=== PATIENT | male | born 2005 | race Caucasian/White ===

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

== ENCOUNTER 2025-05-30 05:39 | Emergency (ER) | payer MEDICAID, OTHER, SELFPAY ==
[~2025-05-30] VITALS: Ht 165.1 cm; Wt 57.6 kg
[2025-05-30] MEDS: NS (Normal Saline) 0.9% 1,000 ML IV ONE (06:15)
[2025-05-30 06:20] LABS: BASO # 0.1 10^3/uL (0.0-0.2); BASO % 0.8 % (0.0-1.0); EOS # 0.1 10^3/uL (0.0-0.5); EOS % 1.6 % (0.0-3.0); LYMPH # 2.3 10^3/uL (1.5-5.0); LYMPH % 26.1 % (24.0-44.0); MONO # 0.6 10^3/uL (0.0-0.8); MONO % 7.2 % (2.0-8.0); NEUTROPHILS # 5.6 10^3/uL (1.5-8.5); NEUTROPHILS % 63.7 % (36.0-66.0); PLATELET COUNT, AUTOMATED 310 10^3/uL (150-450)
[2025-05-30 07:43] LABS: ETHYL ALCOHOL (ETHANOL) 0.211 % (0.000-0.010)
[2025-05-30 07:44] LABS: ALT/SGPT 56 U/L (7.0-40); AST/SGOT 30 U/L (<34); CALCIUM LEVEL 7.6 MG/DL (8.5-10.1); CARBON DIOXIDE LEVEL 26 MMOL/L (20-31); CHLORIDE LEVEL 110 MMOL/L (98-107); CPK CREATINE PHOSPHOKINASE 351 U/L (46-171); CREATININE FOR GFR 0.69 MG/DL (0.70-1.30); GLOMERULAR FILTRATION RATE > 90.0 (>60); POTASSIUM SERUM 4.1 MMOL/L (3.5-5.1); SALICYLATE LEVEL < 3.0 MG/DL (<30); SODIUM LEVEL 146 MMOL/L (136-145)
[2025-05-30 08:19] VITALS: BP 100/50; TEMP 97; O2SAT 96
== END 2025-05-30 08:40 | disposition home or self-care (01) ==
LOC: M ED 05:39 → EDBD 05:39 → M ED 08:40
DX: F10.129 Alcohol abuse with intoxication, unspecified (principal); Y90.7 Blood alcohol level of 200-239 mg/100 ml